=== PATIENT | female | born 1980 | race Hispanic/Latino ===

== ENCOUNTER 2016-11-12 12:15 | Day surgery (SDC) | payer OTHER ==
[~2016-11-12] VITALS: Ht 167.6 cm; Wt 95.1 kg
[2016-11-12] VITALS (21 sets, daily range): BP systolic 109–136; BP diastolic 50–97; PULSE 79–100; RESP 13–24; O2SAT 92–100
[2016-11-12] MEDS: Lactated Ringer's 1,000 ML IV SCH ×3 (05:00→13:30)
[~2016-11-12 12:15] MED LIST: FERR325C PO; IBUP-1827 PO
[2016-11-12] MEDS ORDERED: MetoCLOpramide 5 mg/mL 2 mL Inj ONE (12:16)
[2016-11-12] MEDS ORDERED: Rocuronium 10 mg/mL 5 mL Inj ONE (12:16)
[2016-11-12] MEDS ORDERED: fentaNYL-PF 50 mCg/mL 2 mL Inj ONE (12:16)
[2016-11-12] MEDS ORDERED: Dexamethasone 4 mg/mL Inj ONE (12:16)
[2016-11-12] MEDS ORDERED: Glycopyrrolate 0.2 mg/mL 5 mL Inj ONE (12:16)
[2016-11-12] MEDS ORDERED: Ondansetron 2 mg/mL 2 mL Inj ONE (12:16)
[2016-11-12] MEDS ORDERED: Neostigmine 1 mg/mL 5 mL Inj ONE (12:16)
[2016-11-12] MEDS ORDERED: Phenylephrine/NS-PF 100 mCg/mL 5 mL Syringe IVPUSH ONE (12:16)
[2016-11-12] MEDS ORDERED: Propofol 10,000 mCg/mL 20 mL Inj ONE (12:16)
--- NOTE | 2016-11-12 13:30 | PCM.HPANE ---
Patient Data Date of Service: Nov 12, 2016 Surgeon Admitting Provider: Attending Provider:Adalberto Ayers MD Primary Care Physician:Noppilo Other Provider:Justin Chavez Anesthesia Reason for Visit Menorrhagia, Sterilization Ht/WT & BMI Height (Feet): 5 Height (Inches): 6 Weight (Kilograms): 95.1 Body Mass Index 33.00 Allergies Coded Allergies: No Known Allergies (Unverified , 11/12/16) Past Anesthesia History Anesthesia History: Denies:: Anesthesia Reactions, Fam Anesthesia Reaction Diabetes History Hx Diabetes?: No MRSA MRSA: No Medications Hypertension Medication: No Home Meds Incl Beta Neri: No Discontinued Reported Medications Ferrous Sulfate (Iron)325 Mg Capsule.er325 Mg PO BID 11/10/16 Ibuprofen 600 Mg [id number] Mg PO Q6H PRN For Pain Ref 0 11/10/16 History History of ENT Problems?: No Hx of Heart Problems?: No Hx of Respiratory Problem?: No Respiratory History: Denies:: Asthma Emphysema Oxygen Administration Use of C-PAP Machine Use of Inhalers / NEBS Hx Neurologic Problems?: No Neurological History: Denies:: CVA Headaches Multiple Sclerosis Parkinson's Disease Seizures Hx of GI Problems?: Yes Gastrointestinal History: Positive for:: Gall Bladder Disease (removed) Hx of Problems?: No Female Hx: Denies:: Currently Hx Musculoskeletal Problems?: No Musculoskeletal History: Denies:: Fibromyalgia Joint Replacement Musculoskeletal Trauma Myasthenia Gravis Osteoarthritis Hx of Psycho/Social Problems?: No Psycho Social History: Denies:: Anxiety Hx Depression Hx Surgeries?: Yes (mundo, D+C) Hx Any Other Health Problems?: Yes Other History: Denies:: Cancer Thyroid Disease Hx Diabetes: No Hx Alcohol Use: YesAlcoholic Drinks Per Day: "light"Hx Substance Use: NoHave You Smoked inLast 12 mo: No Stop/Bang Treated for Sleep Apnea?: No Do You Have a CPAP Machine?: No S-Snoring: Do You Snore Loudly: No T-Tired: feel tired, fatigued: No O-Obsered: Observed not breath: No P-Blood Pressure: treated: No B- Body Mass Index > 35 kg/m2: No A- Age over 50: No N- Neck Large Circumference: No G- Gender Male: No LUCA Risk Assessment: Low Risk, <3 Yes Risk Assessment Category Category 1A: Patient has history of documented sleep apnea, and HAS NOT received any narcotic, sedative or anesthesia administration during this stay. Category 1B: Patient has history of documented sleep apnea, and HAS received any narcotic , sedative or anesthesia administration during this stay Category 2: Patient has SUSPECTED Obstructive Sleep Apnea, and HAS received any narcotic , sedative or anesthesia administration during this stay. Category 3: Patient has SUSPECTED Obstructive Sleep Apnea and HAS NOT received narcotic, sedative or anesthesia administration during this stay. Category 4: Outpatient in Procedural Areas with known sleep apnea or who screen positive for High Risk via the STOP/BANG questionnaire. Exam Exam Vital Signs Vital Signs Date Time Temp Pulse Resp B/P Pulse Ox O2 Delivery O2 Flow Rate FiO2 11/12/16 12:43 36.1 87 16 129/81 98 Room Air General Appearance: Alert, Oriented X3, Cooperative, No Acute Distress HEENT/AIRWAY: MP 3, Neck Movement (full), Mouth Opening (3 FB), Other (tmd > 3 FB) Lungs: Clear to Auscultation, Normal Air Movement Heart: Exam Unremarkable, Regular Rate/Rhythm, No Murmurs/Rubs/Gallops Meds/Labs/Diagnostics Admission Meds Current Medications Lactated Ringer's (Lr) 1,000 ml @ 120 mls/hr Q8H20M IV Last administered on 12:42; Start 11/12/16 at 05:00; Stop 11/12/16 at 13:19; Status DC Celecoxib (CeleBREX) 200 mg STK-MED ONCE .ROUTE Last administered on 11/12/16 12:36; Start 11/12/16 at 12:36; Stop 11/12/16 at 12:37; Status DC Acetaminophen (Tylenol) 650 mg STK-MED ONCE PO Last administered on 11/12/16 12:36; Start 11/12/16 at 12:36; Stop 11/12/16 at 12:38; Status DC Gabapentin (Neurontin) 600 mg STK-MED ONCE .ROUTE Last administered on 12:36; Start 11/12/16 at 12:37; Stop 11/12/16 at 12:38; Status DC Scopolamine (Transderm-Scop Patch) 1.5 mg STK-MED ONCE TOPICAL Last administered on 11/12/16 12:36; Start 11/12/16 at 12:37; Stop 11/12/16 at 12:39 ; Status DC Plan Impression Patient chart reviewed, patient interviewed and anesthestic plan with risks, benefits, and alternatives discussed, and informed consent obtained. NPO Status: 2200 11/11 ASA Physical Status: ASA1 Normal Healthy Anesthetic Plan: GA Bene/Risks/Altern/Consents: Yes HP Complete Prior to Induction: Yes Other Patient is Mandaen and will accept certain blood products listed in front of chart. Venancio Dowling MD Nov 12, 2016 13:30
[2016-11-12] MEDS ORDERED: Lactated Ringer's 1,000 ML IV SCH (14:36)
[2016-11-12] MEDS ORDERED: Lactated Ringer's 500 ML IV PRN (14:36)
[2016-11-12] MEDS ORDERED: Ondansetron 2 mg/mL 2 mL Inj IVPUSH PRN ×2 (14:40→18:35)
[2016-11-12] MEDS ORDERED: EPHEDrine Sulfate 50 mg/mL Inj IM PRN (14:40)
[2016-11-12] MEDS ORDERED: Phenylephrine 10,000 mCg/mL Inj IVPUSH PRN (14:40)
[2016-11-12] MEDS ORDERED: EPHEDrine Sulfate 50 mg/mL Inj IVPUSH PRN (14:40)
[2016-11-12] MEDS ORDERED: hydrALAZINE 20 mg/mL Inj IVPUSH PRN (14:40)
[2016-11-12] MEDS ORDERED: Labetalol 5 mg/mL 4 mL Inj IV PRN (14:40)
[2016-11-12] MEDS ORDERED: Atropine 0.4 mg/mL Inj IVPUSH PRN (14:40)
[2016-11-12] MEDS ORDERED: HYDROmorphone 1 mg/mL Inj IVPUSH PRN (14:40)
[2016-11-12] MEDS ORDERED: Bupivacaine-MPF 0.5% W/EPI 30 mL Inj INFILTRATE ONE (14:58)
--- NOTE | 2016-11-12 18:00 | PCM.ANEP1 ---
Post Anesthesia Phase 1 PACU Phase 1 Assessment Date of Service: Nov 12, 2016 Vital Signs Vital Signs Date Time Temp Pulse Resp B/P Pulse Ox O2 Delivery O2 Flow Rate FiO2 11/12/16 12:43 36.1 87 16 129/81 98 Room Air Anesthetic Administered: GA Level of Alertness: Sleeping, hard to arouse Oxygen Delivery: Simple Mask Lungs: Clear to Auscultation, Normal Air Movement Julio Cesar Pillai MD Nov 12, 2016 18:00
--- NOTE | 2016-11-12 18:14 | PCM.ANEP2 ---
Post Anesthesia Evaluation ASA/CMS Post Anesthesia VS in Patient's Normal Range?: Yes Resp Stable; Airway Patent?: Yes CV Function & Hydration Stable: Yes Mental Status Recovered?: Yes Pain control Satisfactory?: Yes N/V Control Satisfactory?: Yes Julio Cesar Pillai MD Nov 12, 2016 18:14
[2016-11-12] MEDS ORDERED: diphenhydrAMINE 25 mg Capsule PO PRN (18:35)
[2016-11-12] MEDS ORDERED: oxyCODONE-Acetamin 5-325 mg Tablet PO PRN (18:35)
[2016-11-12] MEDS: fentaNYL-PF 50 mCg/mL 2 mL Inj IVPUSH PRN ×3 (18:41→19:06)
--- NOTE | 2016-11-12 20:16 | OP ---
[address] [address] OPERATIVE REPORT PATIENT: KHUSHBOO RAHMAN : 1980 MR#: [id number] ADMIT: 11/12/2016 JOB ID: [id number] DATE OF SURGERY: 11/12/2016 SURGEON: Adalberto Ayers MD SEWING MACHINE OPERATOR FLOORPERSON: Meryl Morillo MD SECOND SEWING MACHINE OPERATOR FLOORPERSON: Tyshawn Orosco MD PREOPERATIVE DIAGNOSIS(ES): 1. A 36-year-old, 3, para 1-1-1-2, with a four years history of menorrhagia. Office endometrial biopsy was negative for hyperplasia or cancer. The patient also is a [employer] with severe anemia. H and H was 7.4 and 24.7 at first consultation. Normal pelvic ultrasound. The patient opted to proceed with hysteroscopy, D and C, with endometrial ablation. 2. The patient desires permanent sterilization. Opted for laparoscopic tubal ligation. POSTOPERATIVE DIAGNOSIS(ES): 1. A 36-year-old, 3, para 1-1-1-2, with a four years history of menorrhagia. Office endometrial biopsy was negative for hyperplasia or cancer. The patient also is a [employer] with severe anemia. H and H was 7.4 and 24.7 at first consultation. Normal pelvic ultrasound. The patient opted to proceed with hysteroscopy, D and C, with endometrial ablation. 2. The patient desires permanent sterilization. Opted for laparoscopic tubal ligation. PROCEDURE: 1. Laparoscopy with bilateral tubal fulguration using bipolar Kleppinger. 2. Hysteroscopy dilation and curettage. 3. NovaSure endometrial ablation. ANESTHESIA: General endotracheal. ESTIMATED BLOOD LOSS: 50 cc. IV FLUIDS: 800 cc of crystalloid. URINE OUTPUT: Urine output at the end of the procedure was 350 cc of clear urine. COMPLICATIONS: None. FLUIDS: Hysteroscopy distention media was normal saline with a deficit of 200 cc at the end of the procedure. FINDINGS: 1. Examination under anesthesia revealed approximately 12 week size uterus in mid position. No adnexal masses appreciated bilaterally. Uterus was sounded to 10 cm during the hysteroscopy part. Uterine length calculated at 6 cm, maximum uterine width achieved 4 cm. Ablation cycle with NovaSure lasted for 109 seconds. 2. Hysteroscopic findings: Multiple endometrial polyps occupying the entire endometrial cavity. Could not visualize the tubal ostia bilaterally due to the multiple polyps. Adequate ablation was confirmed with hysteroscopy picture after the ablation cycle was completed. 3. Laparoscopic findings: Normal fallopian tubes and ovaries bilaterally. Normal liver. No intra-abdominal adhesions noted. No endometriosis spots observed. No subserosal fibroids observed. 4. Second learning and development assistant was Dr. Tyshawn Orosco, who came in and inserted the left subcostal intra-abdominal port to facilitate visualization and proper placement of the umbilical port. PROCEDURE: Risks, benefits, and alternatives to the procedure were discussed with the patient and informed consent signed. The patient was moved to the operating room with IV running. After general anesthesia found to be adequate, the patient was prepped and draped in the normal sterile fashion. Examination under anesthesia revealed the above findings. The patient's abdomen and vagina were prepped and draped in the normal sterile fashion. The single-tooth tenaculum was applied to the patient's cervix and the acorn inserted into the patient's uterus and affixed to the single-tooth tenaculum for uterine manipulation purposes. Attention was then turned to the patient's abdomen. An infraumbilical incision was made with a scalpel after injecting 4 cc of half Marcaine with 1:200,000 epinephrine. The dissection continued with sharp and blunt dissection gradually with retractors and grabbing with two hemostats and cutting in between, until the subcutaneous layer was completely dissected. The subcutaneous layer was noted to be around 5 cm, then the fascia was palpated. There was difficulty to grab with Kochers and the decision was made to try a Veress needle at that point. The Veress needle went through the infraumbilical incision and fascia and then appropriate positioning was confirmed with two drops of saline after internal insufflation with 2 L of carbon dioxide. The Veress needle removed and a long 5 mm trocar and sleeve was introduced into the patient's abdomen under direct visualization. There was noted to be difficulty with the abdominal end of the port valve. There was no consistent picture of the abdominal cavity, so Dr. Tyshawn Orosco was available. He came in and he made a 2nd port at the left subcostal margin time. Skin incision was made with a scalpel and the Veress needle introduced. He confirmed that there is air in the abdomen and then he removed the Veress needle and introduced his 5 mm trocar and sleeve and under direct visualization with the 5 mm scope the infraumbilical trocar and sleeve was noted to be in a tangential fashion. It was retracted and re-directed to the central fashion and at that point the intra-abdominal picture was clear, so Dr. Orosco left. Camera placed in the left subcostal port and using a blunt retractor through the infraumbilical port, with Trendelenburg position, all of the bowel was retracted. With manipulating the uterus both fallopian tubes and ovaries were noted to be of normal anatomy. Then, the right fallopian tube was grabbed 3 cm from the cornual end with Kleppinger and a 3 cm segment was completely fulgurated. In a similar fashion the left fallopian tube was grasped 3 cm from the cornual end, and a 3 cm segment was completely fulgurated. Pictures were taken. There was some few blood clots in the abdomen. After suction and irrigation; hemostasis was confirmed. There was no active bleeding noted and there was no source of bleeding found from any of the peritoneal surfaces. Then all instruments removed from patient's abdomen and attention was turned to the patient's vagina where the acorn was removed and the uterus was sounded to 10 cm. The cervical length was found to be 4 cm and the calculated uterine length was 6 cm accordingly. Then, the cervix was found to be already dilated up to Hegar dilator number seven as patient had misoprostol for cervical priming. The hysteroscope was introduced into the patient's uterus with normal saline as distention media. Under direct visualization; multiple endometrial polyps occupying the entire endometrium were noted. The tubal ostia was obliterated by the multiple polyps. The scope was removed. Sharp curettage of cervix and introduced and endometrium followed. Two specimens sent to pathology. A second look with the scope confirmed removal of all of the polyps in the uterus. Then, the scope was removed and the NovaSure device was opened and confirmed to be intact. The device introduced into the patient's uterus with a uterine length of 6 cm, and then with appropriate closure a maximum width of 4 cm was achieved. The first device check failed, so this was followed by sealing the cervix around the NovaSure device using two single-tooth tenaculums. This was successful and the device checking was completed successfully. This was followed by the ablation cycle that was completed in 109 seconds. All instruments were removed the from patient's vagina. The MyoSure scope was introduced and adequate ablation was confirmed. There was noted to be bleeding from one of the single-tooth tenaculum insertions and the defect on the cervix was noted to be deep, repaired with 2-0 0-Vicryl suture in [id number]. Good hemostasis was assured. The patient tolerated the procedure well. Sponge, lap, needle, and instrument counts were correct x2. Attention turned back to the abdomen for a 2nd look with the laparoscopy. Suction irrigation confirmed hemostasis. The abdomen was desufflated. All instruments removed. The skin was closed in an interrupted fashion with 4-0 Vicryl suture. Good hemostasis was assured. The patient moved to recovery in stable condition. Dr. Ayers was present and scrubbed for the entire procedure. AKBAR
--- NOTE | 2016-11-12 23:31 | NUR ---
Arrival to unit Patient arrived to unit at 1950 via [place]. Patient is very sleepy, but able to arouse. Patient was able to assist with transfer to hospital bed by scooting over to other bed. Patient shortly falls asleep after being aroused. Patient is on 2L 02 via ID. Patient states 7/10 pain. 1 tab percocet PO given; upon reassessment patient denies need for second tab. Chart came down with patient from PACU. Ice chips and sips of water offered. Will continue to monitor.
--- NOTE | 2016-11-12 23:54 | NUR ---
Discharge Patient discharged to home at 2350. Pt escorted via wheelchair, and assisted into car. Patient is A&OX3, maintaining sats > 92% on room air, and able to ambulate with SBA. Patient has been able to void, is tolerating liquids, solid foods, and PO pain medication. Patient denies any N/V. IV Dc'd. Abdominal laparoscopic sites are C/D/I, and no vaginal drainage is present. Went over discharge instructions, care notes, and orders once more. Copies are with patient. Verified prescriptions with patient, and patients has already filled them. All questions have been answered, and patient has been instructed to schedule a follow up appointment. All belongings left with patient.
--- NOTE | 2016-11-16 13:38 | PATH ---
SURGICAL PATHOLOGY Attending Physician:Adalberto Ayers MD CASE STATUS: Signed Out PATIENT NAME: KHUSHBOO RAHMAN PID: [id number] : 1980 DATE COLLECTED:11/12/2016 00:00 SPECIMEN: 1: Endocervix, Curettage 2: Endometrium, Curettage CLINICAL HISTORY: MENORRHAGIA, STERILIZATION 1. ENDOCERVICAL CURETTAGE 2. ENDOMETRIAL CURETTAGE FINAL DIAGNOSIS: 1. Endocervical Curettage: Fragments of endocervical tissue, chronically inflamed with prominent squamous metaplasia. Negative for atypia and malignancy. 2. Endometrial Curettage: Proliferative endometrium with changes of glandular and stromal breakdown. Negative for atypia and malignancy. ICD10 N92.0 GROSS DESCRIPTION: The specimen is received in two formalin filled containers labeled with the patient's name. 1). The specimen is sublabeled "endocervical curettage" and consists of approximately a 0.75 cc aggregate tissue, mucoid material and blood which is entirely submitted in cassette 1A. 2). The specimen is sublabeled "endometrial curettage" and consists of approximately 0.6 cc aggregate of tissue, mucoid material and blood which is entirely submitted in cassettes 2A, 2B. 11/13/2016 [facility] ICD-9 CODES: CPT CODES: 1: 00926 2: 50584 Electronically Signed Out Ricardo Colorado MD [facility] Pathology [facility] [address], [place] [address] Technical component performed at [facility], [facility] [address], [address]
== END 2016-11-12 23:50 | disposition home or self-care (01) ==
LOC: SAS 12:15 → OSC 20:15 → SAS 23:50
PROVIDERS: ATTEND Obstetrics & Gynecology
DX: N92.0 Excessive and frequent menstruation with regular cycle (principal); Z30.2 Encounter for sterilization
CPT/HCPCS: 58563; 58670; 88305; J1100; J2250; J2370; J2405; J2710; J2765; J7120